=== PATIENT | male | born 1955 ===

== ENCOUNTER 2024-06-21 09:17 | Day surgery (SDC) | payer OTHER ==
[~2024-06-21] VITALS: Ht 188 cm; Wt 115.5 kg
[~2024-06-21 09:17] MED LIST: ASPI81CH PO; BUPR150T2 PO; Balanced Salt Epinephrine Irrigation Solution 500 mL IR SCH; CYCL10 PO; LISI20 PO; Lidocaine HCl/Pf 1% 5 ML VIAL ONE; Lidocaine HCl/Pf 1% 5 ML VIAL XX SCH; METF500 PO; Midazolam HCl 1MG / ML 2ML Vial ONE; Moxifloxacin HCL 0.5 MG/0.1 ML 0.4MLSYR LEFTEYE SCH; NS 500 ML IV ONE; PHENYLEPHRINE\\TROPICAMIDE\\TETRACAINE OPHTHALMIC DILATING SOLN LEFTEYE PRN; PRAV20 PO; Povidone-Iodine 450 DROP/30 ML Solution LEFTEYE SCH; Triamcinolone Inj Susp 40 MG / ML 1ML Vial INJ SCH; Triamcinolone Inj Susp 40 MG / ML 1ML Vial ONE; ZOLP5 PO
[2024-06-21] MEDS ORDERED: LOSARTAN POTASS25 M2 PO (09:50)
[2024-06-21] MEDS ORDERED: TRAM50 PO (09:51)
[2024-06-21] MEDS ORDERED: AMLODIPINE BESYL5 MG PO (09:51)
[2024-06-21] MEDS ORDERED: ROSUVASTATIN CA10 MG PO (09:52)
[2024-06-21] MEDS ORDERED: BUPROPION HCL XL 300 (09:52)
[2024-06-21] MEDS ORDERED: BREZTRI AEROS10.7 GM (10:01)
[2024-06-21] MEDS ORDERED: ALBUTEROL HFA 90 MCG (10:03)
[2024-06-21] MEDS ORDERED: NS 500 ML IV ONE (10:19)
--- NOTE | 2024-06-21 10:21 | NUR ---
06/21/24 Alicia Cheri Moss RN DISCUSSED WITH ANESTHESIOLOGIST DR POE THAT PATIENT HAS SOME HEAR IRREGULARITIES AND WILL BE SEEING A GOLD MINER BLASTING SOON IN [place]
[2024-06-21] MEDS ORDERED: Midazolam HCl 1MG / ML 2ML Vial ONE (10:41)
[2024-06-21 11:01] VITALS: BP 126/80
== END 2024-06-21 11:22 | disposition home or self-care (01) ==
LOC: ORSCSDS 09:17
PROVIDERS: Ophthalmology
PROC: 08RK3JZ Replacement of Left Lens with Synthetic Substitute, Percutaneous Approach (ICD-10-PCS; principal; 2024-06-21 10:30)
DX: H25.813 Combined forms of age-related cataract, bilateral (principal); H52.202 Unspecified astigmatism, left eye; I10 Essential (primary) hypertension; I35.0 Nonrheumatic aortic (valve) stenosis; R00.0 Tachycardia, unspecified; F17.210 Nicotine dependence, cigarettes, uncomplicated; R06.02 Shortness of breath; Z79.899 Other long term (current) drug therapy
CPT/HCPCS: J2001; J2250; J3301; J7040; V2632

== ENCOUNTER 2024-08-02 07:56 | Day surgery (SDC) | payer MEDICARE, OTHER ==
[2024-08-02] VITALS (21 sets, daily range): BP systolic 99–159; BP diastolic 59–111
[~2024-08-02] VITALS: Ht 188 cm; Wt 115.2 kg
[~2024-08-02 07:56] MED LIST changes: +ALBUTEROL HFA 90 MCG; +AMLODIPINE BESYL5 MG PO; +BREZTRI AEROS10.7 GM; +BUPROPION HCL XL 300; -Balanced Salt Epinephrine Irrigation Solution 500 mL IR SCH; +LOSARTAN POTASS25 M2 PO; -Lidocaine HCl/Pf 1% 5 ML VIAL ONE; -Lidocaine HCl/Pf 1% 5 ML VIAL XX SCH; -Midazolam HCl 1MG / ML 2ML Vial ONE; -Moxifloxacin HCL 0.5 MG/0.1 ML 0.4MLSYR LEFTEYE SCH; -NS 500 ML IV ONE; +NS 500 ML IV SCH; -PHENYLEPHRINE\\TROPICAMIDE\\TETRACAINE OPHTHALMIC DILATING SOLN LEFTEYE PRN; -Povidone-Iodine 450 DROP/30 ML Solution LEFTEYE SCH; +ROSUVASTATIN CA10 MG PO; +TRAM50 PO; -Triamcinolone Inj Susp 40 MG / ML 1ML Vial INJ SCH; -Triamcinolone Inj Susp 40 MG / ML 1ML Vial ONE
--- NOTE | 2024-08-02 08:22 | NUR ---
Ambulatory in Day Surgery. History, Chart, Medications and Allergies reviewed before start of procedure. Lungs with scattered expiratory wz r>l. Pt reports mild sob with exertion. sats 93% on ra. Patient confirms NPO status and agrees with scheduled surgery. Patient states colon prep results clear. Patient States Post-Procedure ride home has been arranged.
[2024-08-02] MEDS ORDERED: propofoL 60 ML IV ONE (08:43)
[2024-08-02] MEDS ORDERED: Midazolam HCl 1MG / ML 2ML Vial ONE (08:43)
--- NOTE | 2024-08-02 08:50 | NUR ---
08/02/24 2268 Doris De La Rosa CONFIRMED AND REVIEWED H&P, MEDCICATIONS, ALLERGIES, MEDICAL HISTORY, RESPIRATORY HISTORY, VITAL SIGNS, 3-LEAD EKG, CONSENTS, AND PHYSICIAN ORDERS. PATIENT CONFIRMS NPO STATUS AND AGREES WITH SCHEDULED PROCEDURE. MONITOR INTACT WITH CONTINUOUS PULSE OXIMETRY, CAPNOGRAPHY, 3-LEAD EKG, INTERMITTENT BP. SUPPLEMENTAL O2 TO BE TITRATED THROUGHOUT PROCEDURE TO MAINTAIN O2 SATURATION ABOVE 90%. PATIENT DETERMINED TO BE ASA APPROPRIATE FOR PROPOFOL SEDATION PRIOR TO START OF PROCEDURE BY DR. SUH. MALLAMPATI CLASS 3 AIRWAY: VISUALIZATION OF ONLY THE BASE OF THE UVULA.
--- NOTE | 2024-08-02 09:43 | NUR ---
Discharge instructions reviewed with patient. Patient verbalizes understanding. Copy given to patient to take home. Patient States Post-Procedure ride home has been arranged. Discharged via wheelchair to private car for ride home.
== END 2024-08-02 09:45 | disposition home or self-care (01) ==
LOC: ORSCMMR 07:56 → ORD 09:00 → ORSCMMR 09:45
PROVIDERS: Internal Medicine Gastroenterology
PROC: 0DBP8ZX Excision of Rectum, Via Natural or Artificial Opening Endoscopic, Diagnostic (ICD-10-PCS; principal; 2024-08-02 09:00)
PROC: 0DBL8ZX Excision of Transverse Colon, Via Natural or Artificial Opening Endoscopic, Diagnostic (ICD-10-PCS; principal; 2024-08-02 09:00)
PROC: 0DBM8ZX Excision of Descending Colon, Via Natural or Artificial Opening Endoscopic, Diagnostic (ICD-10-PCS; principal; 2024-08-02 09:00)
PROC: 0DBN8ZX Excision of Sigmoid Colon, Via Natural or Artificial Opening Endoscopic, Diagnostic (ICD-10-PCS; principal; 2024-08-02 09:00)
DX: Z12.11 Encounter for screening for malignant neoplasm of colon (principal); R19.5 Other fecal abnormalities; D12.3 Benign neoplasm of transverse colon; K63.5 Polyp of colon; K62.1 Rectal polyp; J44.9 Chronic obstructive pulmonary disease, unspecified; F17.210 Nicotine dependence, cigarettes, uncomplicated; I10 Essential (primary) hypertension; E78.00 Pure hypercholesterolemia, unspecified; Z79.899 Other long term (current) drug therapy
CPT/HCPCS: 88305; J2250; J2704; J7040

== ENCOUNTER 2024-11-15 20:48 | Inpatient (IN) | payer OTHER, MEDICARE ==
[~2024-11-15] VITALS: Ht 190.5 cm; Wt 117.9 kg
[~2024-11-15 20:48] MED LIST changes: -BUPROPION HCL XL 300; -NS 500 ML IV SCH; -ROSUVASTATIN CA10 MG PO
[2024-11-15 22:09] LABS: BASOPHILS ABSOLUTE AUTO 0.07 K/mm3 (0.00-0.23); BASOPHILS PERCENT AUTO 1 % (0-2); EOSINOPHILS ABSOLUTE AUTO 0.18 K/mm3 (0.00-0.68); EOSINOPHILS PERCENT AUTO 2 % (0-6); Hematocrit 44.9 % (37.0-53.0); IMMATURE GRAN ABSOLUTE AUTO 0.07 K/mm3 (0.00-0.10); IMMATURE GRAN PERCENT AUTO 1 % (0-1); LYMPHOCYTES ABSOLUTE AUTO 2.53 K/mm3 (0.84-5.20); LYMPHOCYTES PERCENT AUTO 22 % (21-46); MONOCYTES ABSOLUTE AUTO 1.05 K/mm3 (0.16-1.47); MONOCYTES PERCENT AUTO 9 % (4-13); Mean Corpuscular HGB 32.5 pg (26.0-34.0); Mean Corpuscular HGB Conc 33.4 g/dL (31.5-36.5); Mean Corpuscular Volume 97 fL (80-100); Mean Platelet Volume 9.2 fL (9.1-12.4); NEUTROPHILS PERCENT AUTO 66 % (41-73); Platelet Count 213 K/mm3 (150-400); RDW Coefficient Variation 13.6 % (11.7-14.2); RDW Standard Deviation 48.8 fL (35.1-46.3); Red Blood Cell Count 4.62 M/mm3 (4.30-5.90)
[2024-11-15 22:36] LABS: Albumin, Blood 3.9 g/dL (3.4-5.0); Bilirubin, Total 0.6 mg/dL (0.1-1.0); Bun/Creatinine Ratio 40.5 (12.0-20.0); Calcium, Blood 8.8 mg/dL (8.5-10.1); Creatinine, Blood 0.77 mg/dL (0.60-1.20); Potassium, Blood 4.3 mmol/L (3.5-5.5); Total Protein, Blood 7.9 g/dL (6.4-8.2)
[2024-11-16] MEDS ORDERED: FentaNYL Citrate 50 MCG/ML 2 ML Injection IV PRN (00:30)
[2024-11-16] MEDS ORDERED: NS 1,000 ML IV SCH ×2 (02:40→05:35)
[2024-11-16] MEDS ORDERED: TraMADol HCl 50 MG Tab PO ONE (02:45)
[2024-11-16] MEDS ORDERED: FLU VACC TS2024-25(6MOS UP)/PF 45 MCG/0.5 ML SYRINGE IM ONE (05:30)
[2024-11-16] MEDS ORDERED: LORazepam 2 MG/ML 1ML Injection IV PRN (05:30)
[2024-11-16] MEDS ORDERED: Ondansetron HCl 2 MG / ML 2ML Vial IV PRN (05:35)
[2024-11-16] MEDS ORDERED: ChlordiazePOXIDE 25 MG Cap PO PRN (05:35)
[2024-11-16] MEDS ORDERED: Enoxaparin 40 MG/0.4 ML SYR SC SCH (09:00)
[2024-11-16] MEDS ORDERED: Thiamine HCl 100 MG in NS 50 ML IV SCH (09:00)
[2024-11-16 09:35] LABS: BASOPHILS ABSOLUTE AUTO 0.06 K/mm3 (0.00-0.23); BASOPHILS PERCENT AUTO 1 % (0-2); EOSINOPHILS ABSOLUTE AUTO 0.21 K/mm3 (0.00-0.68); EOSINOPHILS PERCENT AUTO 2 % (0-6); Hematocrit 38.6 % (37.0-53.0); Hemoglobin 13.2 g/dL (13.5-17.5); IMMATURE GRAN ABSOLUTE AUTO 0.04 K/mm3 (0.00-0.10); IMMATURE GRAN PERCENT AUTO 0 % (0-1); LYMPHOCYTES ABSOLUTE AUTO 2.56 K/mm3 (0.84-5.20); LYMPHOCYTES PERCENT AUTO 28 % (21-46); MONOCYTES ABSOLUTE AUTO 1.01 K/mm3 (0.16-1.47); MONOCYTES PERCENT AUTO 11 % (4-13); Mean Corpuscular HGB 32.8 pg (26.0-34.0); Mean Corpuscular HGB Conc 34.2 g/dL (31.5-36.5); Mean Corpuscular Volume 96 fL (80-100); Mean Platelet Volume 9.2 fL (9.1-12.4); NEUTROPHILS PERCENT AUTO 58 % (41-73); Platelet Count 191 K/mm3 (150-400); RDW Coefficient Variation 13.5 % (11.7-14.2); RDW Standard Deviation 48.1 fL (35.1-46.3); Red Blood Cell Count 4.02 M/mm3 (4.30-5.90); White Blood Cell Count 9.18 K/mm3 (4.00-11.30)
[2024-11-16] MEDS ORDERED: Nicotine 21 MG PATCH TOP ONE (11:10)
[2024-11-16 13:22] LABS: Hematocrit 38.6 % (37.0-53.0); Hemoglobin 13.1 g/dL (13.5-17.5)
[2024-11-16] MEDS ORDERED: Pantoprazole Sodium 40 MG Injection IV SCH (16:30)
[2024-11-16] MEDS ORDERED: BUPROPION XL150 M1 PO (19:46)
[2024-11-16] MEDS ORDERED: METO25ER PO (19:46)
[2024-11-16] MEDS ORDERED: CYCL10 PO (19:49)
[2024-11-16] MEDS ORDERED: TAMS.4ER PO (19:49)
[2024-11-16] MEDS ORDERED: CLOP75 PO (19:50)
[2024-11-16] MEDS ORDERED: TRELEGY ELLIPT1 EACH INH (19:52)
[2024-11-16 20:04] VITALS: BP 130/60
[2024-11-17] VITALS (11 sets, daily range): BP systolic 114–139; BP diastolic 59–87
[2024-11-17 05:16] LABS: BASOPHILS ABSOLUTE AUTO 0.07 K/mm3 (0.00-0.23); BASOPHILS PERCENT AUTO 1 % (0-2); EOSINOPHILS ABSOLUTE AUTO 0.23 K/mm3 (0.00-0.68); EOSINOPHILS PERCENT AUTO 2 % (0-6); Hematocrit 35.6 % (37.0-53.0); Hemoglobin 11.8 g/dL (13.5-17.5); IMMATURE GRAN ABSOLUTE AUTO 0.05 K/mm3 (0.00-0.10); IMMATURE GRAN PERCENT AUTO 1 % (0-1); LYMPHOCYTES ABSOLUTE AUTO 2.79 K/mm3 (0.84-5.20); LYMPHOCYTES PERCENT AUTO 26 % (21-46); MONOCYTES ABSOLUTE AUTO 0.94 K/mm3 (0.16-1.47); MONOCYTES PERCENT AUTO 9 % (4-13); Mean Corpuscular HGB 32.5 pg (26.0-34.0); Mean Corpuscular HGB Conc 33.1 g/dL (31.5-36.5); Mean Corpuscular Volume 98 fL (80-100); Mean Platelet Volume 9.6 fL (9.1-12.4); NEUTROPHILS ABSOLUTE AUTO 6.48 K/mm3 (1.96-9.15); NEUTROPHILS PERCENT AUTO 61 % (41-73); Platelet Count 186 K/mm3 (150-400); RDW Coefficient Variation 13.7 % (11.7-14.2); Red Blood Cell Count 3.63 M/mm3 (4.30-5.90); White Blood Cell Count 10.56 K/mm3 (4.00-11.30)
[2024-11-17 05:53] LABS: Albumin, Blood 3.5 g/dL (3.4-5.0); Albumin/Globulin Ratio 1.2 (0.8-1.8); Bilirubin, Total 0.3 mg/dL (0.1-1.0); Bun/Creatinine Ratio 44.9 (12.0-20.0); Calcium, Blood 8.6 mg/dL (8.5-10.1); Creatinine, Blood 0.91 mg/dL (0.60-1.20); Potassium, Blood 4.7 mmol/L (3.5-5.5); Total Protein, Blood 6.5 g/dL (6.4-8.2)
--- NOTE | 2024-11-17 07:14 | NUR ---
SHIFT SUMMARY PT ADMITTED LAST EVENING FOR SYNCOPE, FALLS, AND CONCERNS FOR POSSIBLE GI BLEED. PT WITHOUT BM DURING THE NIGHT. DENIES FEELING DIZZY OR LIGHTHEADED. UP TO THE BATHROOM WITH STAND BY ASSIST DUE TO PREVIOUS SYNCOPAL EPISODES. MEDICATED X1 FOR BACK PAIN PER EMAR. SLEPT INTERMITTENTLY THROUGH THE NIGHT. BED IN LOWEST POSITION, CALL LIGHT WITHIN REACH, SIDERAILS UP X2.
[2024-11-17] MEDS ORDERED: LORazepam 2 MG/ML 1ML Injection IV PRN (10:55)
[2024-11-17 12:16] LABS: Hematocrit 36.4 % (37.0-53.0); Hemoglobin 12.2 g/dL (13.5-17.5)
[2024-11-17] MEDS ORDERED: Lactated Ringer's 1,000 ML IV SCH (15:40)
--- NOTE | 2024-11-17 16:38 | NUR ---
PT HAS REMAINED NPO SINCE THIS MORNING, SIPS WITH MEDICATIONS. PT HAD NO C/O PAIN DURING THE SHIFT. WITH ONE BLACK FORMED STOOL MID MORNING. MD CONSULTED FOR ENDOSCOPY FOR LATER THIS [place] WITH PLANS IN PLACE FOR PROCEDURE. PT AND AT BEDSIDE HAVE NO QUESTIONS OR CONCERNS.
[2024-11-17] MEDS ORDERED: propofoL 20 ML IV ONE (19:02)
--- NOTE | 2024-11-17 19:03 | NUR ---
History, Chart, Medications and Allergies reviewed before start of procedure. Patient confirms NPO status and agrees with scheduled surgery. LUNGS DIMINISHED T/O. BIOX 92%, PT REPORTS THAT HAS O2 AT HOME AND WAS TOLD TO WEAR IT IF HE FELT HE NEEDED IT. Pre-Op teaching done. Pt verbalizes understanding.
[2024-11-17] MEDS ORDERED: Ipratropium/Albuterol SulF 2.5-0.5MG/3 ML Amp INH ONE (19:10)
--- NOTE | 2024-11-17 20:05 | NUR ---
11/17/242004 Brenton Parker History, Chart, Medications and Allergies reviewed before start of procedure.MONITOR INTACT WITH CONTINUOUS PULSE OXIMETRY, CONTINUOUS END TITAL CO2, AND INTERMITTENT BLOOD PRESSURE.3-LEAD EKG REVIEWED WITH PHYSICIAN PRIOR TO START OF PROCEDURE.O2 VIA POM INTACT THROUGHOUT SEDATION/PROCEDURE.See Anesthesia record.
[2024-11-17] MEDS ORDERED: Metoprolol Tartrate 25 MG Tab PO ONE (22:55)
--- NOTE | 2024-11-17 23:54 | NUR ---
PER FULL STACK WEB DEVELOPER, PT WITH 2 EPISODES OF VTACH LASTING 6 BEATS (2129, 2214). WHEELCHAIR RENTAL CLERK SHAUNA NOTIFIED AT 2250, AND 1X DOSE OF PO METOPROLOL TARTRATE ORDERED AND GIVEN. PT CURRENTLY RUNNING [address] WITH NO FURTHER VTACH.
[2024-11-18 00:04] VITALS: BP 121/72
[2024-11-18 04:40] LABS: Hematocrit 31.4 % (37.0-53.0); Hemoglobin 10.6 g/dL (13.5-17.5); Mean Corpuscular HGB 33.5 pg (26.0-34.0); Mean Corpuscular HGB Conc 33.8 g/dL (31.5-36.5); Mean Corpuscular Volume 99 fL (80-100); Mean Platelet Volume 9.7 fL (9.1-12.4); Platelet Count 177 K/mm3 (150-400); RDW Coefficient Variation 13.7 % (11.7-14.2); RDW Standard Deviation 49.6 fL (35.1-46.3); Red Blood Cell Count 3.16 M/mm3 (4.30-5.90); White Blood Cell Count 7.95 K/mm3 (4.00-11.30)
--- NOTE | 2024-11-18 06:08 | NUR ---
SHIFT SUMMARY PT HAD ENDOSCOPY LAST EVENING. BACK TO UNIT WITH NO ISSUES, TOLERATING REGULAR DIET. MEDICATED FOR BACK PAIN X1 WITH FENTANYL PER EMAR. SLEPT INTERMITTENTLY THROUGH THE NIGHT. BED IN LOWEST POSITION, CALL LIGHT WITHIN REACH, SIDERAILS UP X2.
[2024-11-18 07:28] VITALS: BP 108/59
[2024-11-18 12:20] LABS: Hematocrit 30.7 % (37.0-53.0); Hemoglobin 10.3 g/dL (13.5-17.5)
[2024-11-18 13:30] VITALS: BP 101/71
[2024-11-18 16:13] VITALS: BP 123/74
--- NOTE | 2024-11-18 16:54 | NUR ---
NO CHANGES IN OT STATUS TODAY. PT HAD NO C/O PAIN DURING THE SHIFT WITH NO BM PT HAS NO QUESTIONS OR CONCERNS AT THIS TIME.
[2024-11-18 20:59] VITALS: BP 103/56
[2024-11-19 03:43] VITALS: BP 94/58
--- NOTE | 2024-11-19 05:54 | NUR ---
SHIFT SUMMARY PT WITH UNEVENTFUL NIGHT. SLEPT LONG INTERVALS. MEDICATED WITH FENTANYL FOR LEG PAIN/SPASMS X1 PER EMAR. PT WITHOUT BM. H/H RESULT PENDING. BED IN LOWESET POSITION, CALL LIGHT WITHIN REACH, SIDERAILS UP X2.
[2024-11-19 06:08] LABS: Hematocrit 30.6 % (37.0-53.0); Hemoglobin 10.1 g/dL (13.5-17.5)
--- NOTE | 2024-11-19 07:28 | NUR ---
ASSUMED CARE OF PATIENT. PATIENT AWAKE DURING SHIFT-CHANGE REPORT. NO ACUTE NEEDS.
[2024-11-19 08:04] VITALS: BP 115/77
[2024-11-19] MEDS ORDERED: buPROPion HCL 150 MG TAB.SR.12H PO SCH (09:00)
[2024-11-19] MEDS ORDERED: Tamsulosin HCl 0.4 MG Cap PO SCH (09:00)
[2024-11-19 12:08] LABS: Hematocrit 30.7 % (37.0-53.0); Hemoglobin 10.3 g/dL (13.5-17.5)
[2024-11-19] MEDS ORDERED: ASPI81CH PO (13:09)
[2024-11-19] MEDS ORDERED: ROSUVASTATIN CA20 MG PO (13:09)
[2024-11-19] MEDS ORDERED: MAG6464 MG PO (13:10)
[2024-11-19] MEDS ORDERED: PANT20 PO (13:24)
--- NOTE | 2024-11-19 16:14 | NUR ---
DISCHARGE SUMMARY: A&Ox4. PLEASANT AND COOPERATIVE WITH CARE. CALLS APPROPRIATELY AND IS ABLE TO ADVOCATE NEEDS EFFECTIVELY. AMBULATES INDEPENDENTLY. CONTINENT OF BOWEL AND BLADDER. MEDS WHOLE WITH FLUIDS. LBM YESTERDAY. SOME PAIN RELATED TO COMFORT OF BED. H&H STABLE. MEDICATIONS FAXED TO [facility]. INSTRUCTED TO FOLLOW-UP WITH DRY BOX TENDER IN [place] TOMORROW. IV REMOVED BY SN JEREMIAS. LEFT FLOOR WITH , DISCHARGE PACKET AND ALL BELONGINGS.
== END 2024-11-19 14:26 | disposition home or self-care (01) | DRG 640 ==
LOC: ER 20:48 → MEDS 20:49 → ERHOLD 20:49 → MEDS 11-16 20:03
PROVIDERS: Emergency Medicine; Internal Medicine; Nurse Practitioner Acute Care; Surgery; ADMIT Internal Medicine
PROC: 0DJ08ZZ Inspection of Upper Intestinal Tract, Via Natural or Artificial Opening Endoscopic (ICD-10-PCS; principal; 2024-11-17 16:30)
DX: E86.0 Dehydration (principal); K29.71 Gastritis, unspecified, with bleeding; I95.1 Orthostatic hypotension; I25.10 Atherosclerotic heart disease of native coronary artery without angina pectoris; D64.9 Anemia, unspecified; F17.210 Nicotine dependence, cigarettes, uncomplicated; I35.0 Nonrheumatic aortic (valve) stenosis; J44.9 Chronic obstructive pulmonary disease, unspecified; E66.9 Obesity, unspecified; M19.90 Unspecified osteoarthritis, unspecified site; H26.9 Unspecified cataract; I10 Essential (primary) hypertension; Z79.02 Long term (current) use of antithrombotics/antiplatelets; E78.00 Pure hypercholesterolemia, unspecified; Z79.899 Other long term (current) drug therapy; Z68.32 Body mass index [BMI] 32.0-32.9, adult; Z98.890 Other specified postprocedural states
CPT/HCPCS: 36415; 70450; 71275; 74174; 80053; 82533; 83880; 84484; 85014; 85018; 85025; 85027; 93005; 93010; 94760; 96365; 96372; 96375; 96376; 99285-25; A9270; G0378; J1650; J2060; J2470; J2704; J3010; J3411; J7030; J7120; Q9967

== ENCOUNTER 2025-09-12 06:07 | Day surgery (SDC) | payer OTHER ==
[~2025-09-12] VITALS: Ht 188 cm; Wt 108.2 kg
[~2025-09-12 06:07] MED LIST changes: +ALBU90OI INH; +Aspir 8181 MG PO; +BUPROPION XL150 M1 PO; +CLOP75 PO; +DISU500 PO; +MAG6464 MG PO; +METO25ER PO; +PANT20 PO; +ROSUVASTATIN CA20 MG PO; +TAMS.4ER PO; +TRELEGY ELLIPT1 EACH INH
[2025-09-12 07:00] VITALS: BP 136/68
--- NOTE | 2025-09-12 07:03 | NUR ---
History, Chart, Medications and Allergies reviewed before start of procedure. Patient up to Ambulate independently. Gait steady. Pre-Op teaching done. Pt verbalizes understanding. Patient confirms NPO status and agrees with scheduled surgery. Patient states colon prep results clear. Patient States Post-Procedure ride home has been arranged.
[2025-09-12] MEDS ORDERED: Ipratropium/Albuterol SulF 2.5-0.5MG/3 ML Amp INH ONE (07:10)
--- NOTE | 2025-09-12 07:33 | NUR ---
09/12/25 0733 Vicky Duque History, Chart, Medications and Allergies reviewed before start of procedure. 3-LEAD EKG REVIEWED WITH PHYSICIAN PRIOR TO START OF PROCEDURE. MONITOR INTACT WITH CONTINUOUS PULSE OXIMETRY, CONTINUOUS END TITAL CO2, 3-LEAD EKG AND INTERMITTENT BLOOD PRESSURE. O2 VIA POM INTACT THROUGHOUT SEDATION/PROCEDURE.
[2025-09-12 08:01] VITALS: BP 98/62
[2025-09-12 08:11] VITALS: BP 130/67
== END 2025-09-12 08:22 | disposition home or self-care (01) ==
LOC: ORSCMMR 06:07 → ORD 07:30 → ORSCMMR 07:30
PROVIDERS: Surgery
PROC: 0DBM8ZX Excision of Descending Colon, Via Natural or Artificial Opening Endoscopic, Diagnostic (ICD-10-PCS; principal; 2025-09-12 07:30)
DX: Z12.11 Encounter for screening for malignant neoplasm of colon (principal); D12.4 Benign neoplasm of descending colon; K57.30 Diverticulosis of large intestine without perforation or abscess without bleeding; Z86.0100 Personal history of colon polyps, unspecified; I10 Essential (primary) hypertension; K21.9 Gastro-esophageal reflux disease without esophagitis; G47.33 Obstructive sleep apnea (adult) (pediatric); J44.89 Other specified chronic obstructive pulmonary disease; Z79.82 Long term (current) use of aspirin; Z79.899 Other long term (current) drug therapy; F17.210 Nicotine dependence, cigarettes, uncomplicated
CPT/HCPCS: 88305; J2704; J7120